=== PATIENT | male | born 1950 | race Caucasian/White ===

== ENCOUNTER 2023-06-14 22:54 | Emergency (ER) | payer MEDICARE, SELFPAY ==
[2023-06-14 23:02] VITALS: BP 172/80; PULSE 75; O2SAT 99
[2023-06-14 23:04] VITALS: BP 172/80; PULSE 76; RESP 18; TEMP 37; O2SAT 99; BMI 22.7
[2023-06-14 23:12] VITALS: BP 146/76; PULSE 75; O2SAT 98
--- NOTE | 2023-06-14 23:28 | DI.CT.S_ITS ---
PROCEDURE: CT HEAD/BRAIN WO CON INDICATIONS: fall hit head TECHNIQUE: Noncontrast 4.5 mm thick angled axial sections acquired from the foramen magnum to the vertex, with coronal and sagittal reformats. For radiation dose reduction, the following was used: automated exposure control, adjustment of mA and/or kV according to patient size. COMPARISON: None. FINDINGS: Image quality: Excellent. CSF spaces: Basal cisterns are patent. No extra-axial fluid collections. The ventricles are symmetric in size and shape. Brain: No intracranial bleeds or masses. There is cerebral volume loss for age, with resultant ventricular and sulcal prominence. There are periventricular and deep white matter chronic small vessel ischemic changes. There is intracranial internal carotid artery atherosclerosis. Skull and face: Calvarium and visualized facial bones appear intact, without suspicious lesions. Sinuses: Visualized sinuses and mastoids are clear. IMPRESSION: No acute intracranial pathology. Dictated by: Nikc Willett M.D. on 06/15/2023 at 0:03 Approved by: Nick Willett M.D. on 06/15/2023 at 0:03
[2023-06-14 23:30] VITALS: BP 124/93; PULSE 77; O2SAT 97
--- NOTE | 2023-06-14 23:32 | DI.CT.S_ITS ---
PROCEDURE: CT CERVICAL SPINE WO CON INDICATIONS: fall head head TECHNIQUE: Noncontrast 3 mm thick sections acquired from the skull base to the T4 level. Sagittal and coronal reformats were then constructed. For radiation dose reduction, the following was used: automated exposure control, adjustment of mA and/or kV according to patient size. COMPARISON: None. FINDINGS: Image quality: Excellent. Bones: No fractures or dislocations. Visualized superior ribs are intact. Moderate disc height loss at C3-4, C4-5, C5-6 and C6-7. Mild at remaining levels. Moderate bilateral neural foraminal narrowing at C3-4, C4-5, C5-6 and C6-7. Soft tissues: Prevertebral soft tissues are normal in thickness. No paravertebral hematomas. No apical pneumothoraces. Heterogeneous thyroid. IMPRESSION: No acute, displaced fracture or traumatic subluxation. Heterogeneous thyroid, suggestive of thyroiditis. Dictated by: Nick Willett M.D. on 06/15/2023 at 0:04 Approved by: Nick Willett M.D. on 06/15/2023 at 0:06
--- NOTE | 2023-06-15 00:23 | ED_ITS ---
HPI - Fall General Chief Complaint: Fall Stated Complaint: fall, head injury, not on thinners Time Seen by Provider: 06/15/23 00:23 Source: patient Mode of arrival: Ambulatory History of Present Illness HPI Narrative: Patient 73-year-old male who presents today with closed head injury. He reports they have been traveling all day he has had 2 small heavy suitcases he was stepping into an are be when he backwards and hit his head on a bumper. No loss of consciousness has a laceration in the posterior head. No neck pain. No numbness tingling or weakness no nausea or vomiting. He denies be on any antiplatelet or anticoagulation medication. They are visiting from [place]. Review of Systems Review of Systems ROS Unobtainable: All systems reviewed & are unremarkable except as noted in HPI and below Patient History Social History Smoking Status: Never smoker Smoking Status: Never smoker alcohol intake frequency: a few times a week Alcohol type: wine Substance Use Type: marijuana Exam Initial Vital Signs Initial Vital Signs: Vital Signs Pulse Rate 75 06/14/23 23:02 Blood Pressure 172/80 H 06/14/23 23:02 Pulse Oximetry 99 06/14/23 23:02 Oxygen Delivery Method Room Air 06/14/23 23:02 GENERAL: Alert well-appearing 73-year-old male HEENT: Head 2 cm laceration posterior had no depressions or crepitation EOMI, pupils reactive, face symmetric NECK: No vertebral tenderness full range of motion CARDIOVASCULAR: Regular rate and rhythm without murmurs, rubs or gallops. RESPIRATORY: Breath sounds equal bilaterally, no wheezes rales or rhonchi. EXTREMITIES: Normal range of motion, no clubbing or edema. Neurovascularly intact NEUROLOGICAL: Alert and oriented x4.Normal gait and speech SKIN: 2 cm laceration posterior head Procedures Laceration Repair Laceration 1: Site: scalp Size (cm): 2 Description: linear Depth: simple, single layer Pre-repair: wound explored, irrigated extensively and deep structures intact Skin layer closed with: sylvie (2) Course Orders Ordered: ED Orders 06/14/23 23:28 CT head/brain wo con Stat 06/14/23 23:32 CT cervical spine wo con Stat Vital Signs Vital signs: Vital Signs - 8 hr 06/14/23 23:04 06/14/23 23:02 06/14/23 23:02 Temperature 98.6 F Pulse Rate 76 75 Respiratory Rate 18 Blood Pressure 172/80 H 172/80 H Pulse Oximetry 99 99 Oxygen Delivery Method Room Air Room Air 06/14/23 23:12 06/14/23 23:12 06/14/23 23:30 Temperature Pulse Rate 75 Respiratory Rate Blood Pressure 146/76 H 124/93 H Pulse Oximetry 98 Oxygen Delivery Method Room Air 06/14/23 23:30 Temperature Pulse Rate 77 Respiratory Rate Blood Pressure Pulse Oximetry 97 Oxygen Delivery Method Room Air MDM - Fall Imaging Data CT scan - head: Radiologist's Impression: PROCEDURE:? CT HEAD/BRAIN WO CON ? INDICATIONS:? fall hit head ? TECHNIQUE:? Noncontrast 4.5 mm thick angled axial sections acquired from the foramen magnum to the vertex, with coronal and sagittal reformats.? For radiation dose reduction, the following was used:? automated exposure control, adjustment of mA and/or kV according to patient size.? ? COMPARISON:? None. ? FINDINGS:? Image quality:? Excellent.? ? CSF spaces:? Basal cisterns are patent.? No extra-axial fluid collections.? The ventricles are symmetric in size and shape.? ? Brain:? No intracranial bleeds or masses.? There is cerebral volume loss for age, with resultant ventricular and sulcal prominence.? There are periventricular and deep white matter chronic small vessel ischemic changes.? There is intracranial internal carotid artery atherosclerosis.? ? Skull and face:? Calvarium and visualized facial bones appear intact, without suspicious lesions.? ? Sinuses:? Visualized sinuses and mastoids are clear.? ? IMPRESSION:? No acute intracranial pathology.? ? ? Dictated by: Nick Willett M.D. on 06/15/2023 at 0:03 ? ? CT - cervical spine: Radiologist's Impression: PROCEDURE:? CT CERVICAL SPINE WO CON ? INDICATIONS:? fall head head ? TECHNIQUE:? Noncontrast 3 mm thick sections acquired from the skull base to the T4 level.? Sagittal and coronal reformats were then constructed.? For radiation dose reduction, the following was used:? automated exposure control, adjustment of mA and/or kV according to patient size.? ? COMPARISON:? None. ? FINDINGS:? Image quality:? Excellent.? ? Bones:? No fractures or dislocations.? Visualized superior ribs are intact.? Moderate disc height loss at C3-4, C4-5, C5-6 and C6-7.? Mild at remaining levels.? Moderate bilateral neural foraminal narrowing at C3-4, C4-5, C5-6 and C6-7. ? Soft tissues:? Prevertebral soft tissues are normal in thickness.? No paravertebral hematomas.? No apical pneumothoraces.? Heterogeneous thyroid.? ? ? IMPRESSION:? No acute, displaced fracture or traumatic subluxation. ? Heterogeneous thyroid, suggestive of thyroiditis. ? Dictated by: Nick Willett M.D. on 06/15/2023 at 0:04? MDM Narrative Medical decision making narrative: Patient presents today after of with head injury secondary to mechanical fall. Not on antiplatelet anticoagulation medication. Head CT and cervical spine CT are negative. It is easily lead repaired with sylvie with good skin a pproximation. Both patient and left prior to discharge instructions. I verbally gave them instructions on care and when to return but they did not want to wait for their papers. Discharge Plan Departure Patient Disposition: Home Clinical Impression: Laceration of scalp Instructions: How to Prevent Falls Stand Alone Forms: Patient Portal/API
== END 2023-06-15 00:31 | disposition home or self-care (01) ==
PROVIDERS: Emergency Provider Emergency Medicine
DX: S01.01XA Laceration without foreign body of scalp, initial encounter (principal); W22.8XXA Striking against or struck by other objects, initial encounter
CPT/HCPCS: 70450; 72125; 99284

== ENCOUNTER 2023-06-21 13:03 | Emergency (ER) | payer MEDICARE, SELFPAY ==
[2023-06-21 13:27] VITALS: BP 154/66; PULSE 75; RESP 18; TEMP 36.6; O2SAT 98; BMI 22.6
--- NOTE | 2023-06-21 13:48 | ED_ITS ---
HPI - Recheck/Abnormal Lab/Rx <Zander Gordon PA-C - Last Filed: 06/21/23 13:52> General Chief Complaint: Recheck/Abnormal Lab/Rx Stated Complaint: Needs sylvie removed Time Seen by Provider: 06/21/23 13:42 Source: patient Mode of arrival: Ambulatory History of Present Illness HPI narrative: 73-year-old male presents to the ED for removal of sylvie from a scalp wound. [place] were put in on 06/15/2023. Patient denies fever, chills, nausea, vomiting. Patient states that the wound has been healing well without problems. Denies erythema, warmth, pain, discharge, swelling at the site of the wound. Related Data Allergies Allergy/AdvReac Type Severity Reaction Status Date / Time No Known Drug Allergies Allergy Verified 06/21/23 13:27 Review of Systems <Zander Gordon PA-C - Last Filed: 06/21/23 13:52> Review of Systems Narrative: Patient requesting staple removal ROS Unobtainable: All systems reviewed & are unremarkable except as noted in HPI and below Constitutional Constitutional: Denies chills, Denies fatigue, Denies fever(s), Denies frequent falls, Denies lethargy and Denies weakness Eyes Eyes: Denies change in vision, Denies eye discharge, Denies irritation and Denies loss of vision ENT Ears, Nose, Mouth, and Throat: Denies change in voice, Denies dizziness, Denies neck pain, Denies sore throat and Denies throat swelling Cardiovascular Cardiovascular: Denies chest pain, Denies irregular heart rhythm, Denies lightheadedness, Denies palpitations, Denies dyspnea, Denies dyspnea on exertion and Denies orthopnea Respiratory Respiratory: Denies cough, Denies dyspnea, Denies dyspnea on exertion and Denies wheezing Gastrointestinal Gastrointestinal: Denies abdominal pain, Denies change in bowel habits, Denies diarrhea, Denies nausea and Denies vomiting Genitourinary Genitourinary: Denies hematuria, Denies flank pain, Denies urinary incontinence and Denies urinary urgency Musculoskeletal Musculoskeletal: Denies back pain, Denies muscle weakness, Denies neck pain, Denies numbness and Denies tingling Integumentary/Breasts Skin/Breast: Denies pruritus, Denies erythema, Denies rash and Denies wounds Neurologic Neurologic: Denies behavioral changes, Denies confusion, Denies dizziness, Denies frequent falls, Denies loss of vision, Denies numbness, Denies tingling and Denies weakness Psychiatric Psychiatric: Denies anxiety, Denies behavioral changes, Denies confusion, Denies depression, Denies homicidal ideation and Denies suicidal ideation Endocrine Endocrine: Denies fatigue, Denies flushing and Denies palpitations Hematologic/Lymphatic Hematologic/Lymphatic: Denies easy bruising Allergic/Immunologic Allergic/Immunologic: Denies urticaria, Denies throat swelling and Denies w heezing Patient History <Zander Gordon PA-C - Last Filed: 06/21/23 13:52> Social History Smoking Status: Never smoker Smoking Status: Never smoker alcohol intake frequency: a few times a week Alcohol type: wine Substance Use Type: marijuana Exam <Zander Gordon PA-C - Last Filed: 06/21/23 13:52> Narrative Exam Narrative: Const General:?cooperative, healthy appearing and comfortable [facility] Head: There is a 2 cm linear laceration that has healed well, well- approximated. No signs of infection. Two sylvie are visualized intact. Ears:?hearing grossly normal bilaterally Nose:?external nose normal Face and sinus:?normal facial exam and sinuses nontender Mouth:?oral mucosae normal Throat:?posterior oropharynx normal Eyes General:?appearance normal, both eyes and all related structures Neck Neck:?normal visual inspection and no lymphadenopathy noted Resp Effort & Inspection:?normal respiratory effort Auscultation:?clear to auscultation bilaterally Cardio Rate:?regular rate Rhythm:?regular rhythm Neuro General:?patient alert, patient awake and patient oriented x3 Initial Vital Signs Initial Vital Signs: Vital Signs Temperature 97.8 F 06/21/23 13:27 Pulse Rate 75 06/21/23 13:27 Respiratory Rate 18 06/21/23 13:27 Blood Pressure 154/66 H 06/21/23 13:27 Pulse Oximetry 98 06/21/23 13:27 Oxygen Delivery Method Room Air 06/21/23 13:27 <Audrey Covarrubias DO - Last Filed: 06/21/23 19:24> Initial Vital Signs Initial Vital Signs: Vital Signs Temperature 97.8 F 06/21/23 13:27 Pulse Rate 75 06/21/23 13:27 Respiratory Rate 18 06/21/23 13:27 Blood Pressure 154/66 H 06/21/23 13:27 Pulse Oximetry 98 06/21/23 13:27 Oxygen Delivery Method Room Air 06/21/23 13:27 Course <Zander Gordon PA-C - Last Filed: 06/21/23 13:52> Vital Signs Vital signs: Vital Signs - 8 hr 06/21/23 13:27 Temperature 97.8 F Pulse Rate 75 Respiratory Rate 18 Blood Pressure 154/66 H Pulse Oximetry 98 Oxygen Delivery Method Room Air <Audrey Covarrubias DO - Last Filed: 06/21/23 19:24> Vital Signs Vital signs: Vital Signs - 8 hr 06/21/23 13:27 Temperature 97.8 F Pulse Rate 75 Respiratory Rate 18 Blood Pressure 154/66 H Pulse Oximetry 98 Oxygen Delivery Method Room Air MDM - Recheck/Abnormal Lab/Rx <Zander Gordon PA-C - Last Filed: 06/21/23 13:52> MDM Narrative Medical decision making narrative: 73-year-old male presents to the ED for removal of sylvie from a scalp wound. Physical exam is reassuring in that the wound has healed well, the edges well approximated. No signs of overt infection including erythema, swelling, warmth, tenderness, discharge. Two sylvie were removed. Patient tolerated well. ED return precautions discussed with patient. Patient verbalized understanding. Medical records reviewed: Yes Discharge Plan Departure Patient Disposition: Home Clinical Impression: Encounter for staple removal Instructions: DI for Suture Removal Activity Restrictions/Additional Instructions: You were seen in the ED for removal of sylvie today. Your laceration appears to have healed well with no infection. Your sylvie were removed. Stand Alone Forms: Patient Portal/API <Audrey Covarrubias DO - Last Filed: 06/21/23 19:24> Cosign ED Attending Cosignature Attestation: I was immediately available in the department for consultation. Documentation has been reviewed.
== END 2023-06-21 13:46 | disposition home or self-care (01) ==
PROVIDERS: Emergency Provider Student in an Organized Health Care Education/Training Program
DX: Z48.02 Encounter for removal of sutures (principal)
CPT/HCPCS: 99281